=== PATIENT | female | born 1940 | race Caucasian/White ===

== ENCOUNTER 2020-12-21 18:25 | Day surgery (SDCO) | payer MEDICARE, OTHER ==
[~2020-12-21] VITALS: Ht 157.5 cm; Wt 93.0 kg
[~2020-12-21 18:25] MED LIST: ASPIRIN EC81 MG PO; ATIVAN0.5 MG PO; BACLOFEN 10MG T10 MG PO; BECONASE AQ25 GM; BUMETANIDE1 MG PO; BUSPAR5 MG PO; BUSPIRONE HCL10 MG PO; CARAFATE1 G1 PO; CARAFATE1 GM PO; CARDIZEM CD180 MG PO; CATAPRES0.1 MG PO; DULERA 200 MCG8.8 GM INH; ELIQUIS5 MG PO; FLONASE ALLER15.8 ML; LEVAQUIN500 MG PO; NORVASC2.5 MG PO; NORVASC5 MG PO; PROAIR HFA8.5 GM INH; PROTONIX 40MG T40 MG PO; RYTHMOL150 MG PO; SEROQUEL50 MG PO; SYNTHROID88 MCG PO; SYSTANE BALANCE10 ML EYEBOTH; TOPROL XL 50 MG50 MG PO; VIBRAMYCIN100 MG PO; ZYRTEC10 M3 PO
[2020-12-21 19:18] LABS: BASOPHIL 0.3 % (0-2); EOSINOPHIL 0.3 % (0-7); HGB 13.1 g/dl (12.5-16.0); LYMPHOCYTE 24.8 % (15-48); MCH 26.8 pg (25.0-31.0); MCHC 32.8 g/dL (32.0-36.0); MPV 9.5 fL (6.0-9.5); NRBC 0; PLT 277 K/uL (150-400); RBC 4.88 M/uL (4.20-5.40); RDW 15.6 % (11.5-14.0); WBC 12.9 K/uL (4.0-10.5)
[2020-12-21 19:43] LABS: PRO-BNP 1729 pg/mL (<450)
[2020-12-21 19:46] LABS: ALBUMIN 3.5 g/dL (3.4-5.0); BILIRUBIN - TOTAL 0.3 mg/dL (0.2-1.0); BUN/CREAT RATIO (CALC) 22.1 RATIO; CREATININE 0.68 mg/dL (0.51-0.95); FT4 (FREE T4) 1.5 ng/dL (0.76-1.46); GLOBULIN (CALCULATION) 3.2 g/dL; MAGNESIUM 1.9 mg/dL (1.8-2.4); POTASSIUM 3.6 mmol/L (3.5-5.1); TOTAL PROTEIN 6.7 g/dL (6.4-8.2)
[2020-12-21 19:52] LABS: BILIRUBIN NEGATIVE (NEGATIVE); BLOOD NEGATIVE Ery/uL (NEGATIVE); CLARITY CLEAR (CLEAR); COLOR YELLOW (YELLOW); GLUCOSE (U) NORMAL (NORMAL); LEUKOCYTES 2+ Leu/uL (NEGATIVE); NITRITE NEGATIVE (NEGATIVE); PROTEIN NEGATIVE (NEGATIVE); SPECIFIC GRAVITY <=1.005 (1.001-1.030); UROBILINOGEN 0.2 mg/dL (0.2-1.0)
[2020-12-21 20:11] LABS: BACTERIA 2+; RENAL EPITHELIAL CELLS RARE; SQUAMOUS EPITHELIAL CELLS RARE; URINARY RBC RARE
[2020-12-21 20:12] LABS: AMORPHOUS URATES CRYSTALS TRACE
[2020-12-21 20:14] LABS: INR 0.99 (0.9-1.2); PROTHROMBIN TIME 12.4 SECONDS (11.4-13.6)
[2020-12-21] MEDS ORDERED: SYNTHROID75 MCG PO (22:24)
[2020-12-22 06:40] LABS: BASOPHIL 0.7 % (0-2); EOSINOPHIL 0.5 % (0-7); HCT 37.1 % (37.0-47.0); HGB 12.2 g/dl (12.5-16.0); LYMPHOCYTE 29.5 % (15-48); MCH 26.5 pg (25.0-31.0); MCHC 32.9 g/dL (32.0-36.0); MCV 80.7 fL (78.0-100.0); MONOCYTE 12.6 % (0-12); MPV 9.5 fL (6.0-9.5); NEUTROPHIL 56.2 % (41-80); NRBC 0; PLT 256 K/uL (150-400); RDW 15.5 % (11.5-14.0); WBC 9.2 K/uL (4.0-10.5)
[2020-12-22 07:08] LABS: BUN/CREAT RATIO (CALC) 22.2 RATIO; CREATININE 0.63 mg/dL (0.51-0.95); POTASSIUM 3.4 mmol/L (3.5-5.1)
[2020-12-22] MEDS ORDERED: ATIVAN0.5 MG PO (12:04)
--- NOTE | 2020-12-22 14:31 | NUR ---
12/22/20 Ms. Pardo lives with her daughter, son-in-law and 9 y/o grandson. She has 02, portable 02, Bipap with 02 at night, quad cane, rw, 3in1, lift chair, and automatic bed. No discharge planning needs are anticipated.
[2020-12-23 05:05] LABS: BUN/CREAT RATIO (CALC) 29.9 RATIO; CREATININE 0.67 mg/dL (0.51-0.95); POTASSIUM 3.9 mmol/L (3.5-5.1)
[2020-12-23] MEDS ORDERED: LEVAQUIN500 MG PO (10:35)
[2020-12-23] MEDS ORDERED: ELIQUIS5 MG PO (12:22)
--- NOTE | 2020-12-23 15:00 | NUR ---
12/23/20 Discharge needs were again discussed with Char. She believes her needs are being met and HH is not needed,
== END 2020-12-23 14:25 | disposition home or self-care (01) ==
LOC: FER 18:25 → FTCU 21:12
PROVIDERS: Emergency Medicine; Emergency Medicine Emergency Medical Services; Internal Medicine Cardiovascular Disease; Nurse Practitioner; ADMIT Hospitalist
DX: I48.0 Paroxysmal atrial fibrillation (principal); I47.1 Supraventricular tachycardia; N39.0 Urinary tract infection, site not specified; G47.33 Obstructive sleep apnea (adult) (pediatric); E89.0 Postprocedural hypothyroidism; G89.29 Other chronic pain; M54.9 Dorsalgia, unspecified; I11.0 Hypertensive heart disease with heart failure; I50.9 Heart failure, unspecified; I07.1 Rheumatic tricuspid insufficiency; I27.20 Pulmonary hypertension, unspecified; Z66 Do not resuscitate; Z87.891 Personal history of nicotine dependence; Z79.82 Long term (current) use of aspirin; Z79.899 Other long term (current) drug therapy; Z88.0 Allergy status to penicillin; Z88.5 Allergy status to narcotic agent; Z88.8 Allergy status to other drugs, medicaments and biological substances; Z20.822 Contact with and (suspected) exposure to COVID-19
CPT/HCPCS: 36415; 71045; 80048; 80053; 81001; 83735; 83880; 84439; 84443; 84484; 85025; 85610; 85730; 87076; 87088; 87186; 93005; 94640; 94667; G0378; J0696; J1650; J1940; U0002

== ENCOUNTER 2021-04-11 13:10 | Emergency (ER) | payer MEDICARE, OTHER ==
[~2021-04-11 13:10] MED LIST changes: +SYNTHROID75 MCG PO
[2021-04-11 16:36] LABS: BASOPHIL 0.4 % (0-2); EOSINOPHIL 1.8 % (0-7); HCT 37.5 % (37.0-47.0); HGB 11.7 g/dl (12.5-16.0); LYMPHOCYTE 16.1 % (15-48); MCHC 31.2 g/dL (32.0-36.0); MPV 9.6 fL (6.0-9.5); NRBC 0; PLT 300 K/uL (150-400); RBC 4.87 M/uL (4.20-5.40); RDW 14.3 % (11.5-14.0); WBC 7.2 K/uL (4.0-10.5)
[2021-04-11 17:16] LABS: CORONAVIRUS 2019 SARS-COV-2 POSITIVE (NEGATIVE); INFLUENZA A NAA NEGATIVE (NEGATIVE)
[2021-04-11 17:17] LABS: BUN/CREAT RATIO (CALC) 15.7 RATIO; C-REACTIVE PROTEIN 1.5 mg/dL (<=0.90); CREATININE 0.7 mg/dL (0.51-0.95); POTASSIUM 3.5 mmol/L (3.5-5.1)
[2021-04-11 17:29] LABS: BILIRUBIN NEGATIVE (NEGATIVE); BLOOD NEGATIVE Ery/uL (NEGATIVE); CLARITY CLEAR (CLEAR); COLOR YELLOW (YELLOW); GLUCOSE (U) NORMAL (NORMAL); LEUKOCYTES 1+ Leu/uL (NEGATIVE); NITRITE NEGATIVE (NEGATIVE); PROTEIN NEGATIVE (NEGATIVE); UROBILINOGEN 0.2 mg/dL (0.2-1.0); pH 7.5 (5.0-9.0)
[2021-04-11 17:37] LABS: URINARY WBC RARE
[2021-04-11 17:38] LABS: AMORPHOUS URATES CRYSTALS MODERATE; BACTERIA TRACE; RENAL EPITHELIAL CELLS RARE; SQUAMOUS EPITHELIAL CELLS 20-50; URINARY RBC RARE
[2021-04-11] MEDS ORDERED: ZOFRAN4 M1 PO (20:20)
[2021-04-11] MEDS ORDERED: AZITHROMYCIN250 MG PO (20:20)
== END 2021-04-11 20:52 | disposition home or self-care (01) ==
LOC: FER 13:10
PROVIDERS: Nurse Practitioner Family
DX: U07.1 COVID-19 (principal); J12.82 Pneumonia due to coronavirus disease 2019; I48.91 Unspecified atrial fibrillation; I10 Essential (primary) hypertension; J44.9 Chronic obstructive pulmonary disease, unspecified; Z88.5 Allergy status to narcotic agent; Z88.0 Allergy status to penicillin; Z88.8 Allergy status to other drugs, medicaments and biological substances; Z23 Encounter for immunization
CPT/HCPCS: 36415; 71045; 80048; 81001; 82728; 85025; 86140; J2405; J7030; M0243; Q0244; U0002

== ENCOUNTER 2021-05-15 15:31 | Day surgery (SDCO) | payer MEDICARE, OTHER ==
[~2021-05-15] VITALS: Ht 157.5 cm; Wt 90.0 kg
[~2021-05-15 15:31] MED LIST changes: +AZITHROMYCIN250 MG PO; +ZOFRAN4 M1 PO
[2021-05-15 17:06] LABS: BASOPHIL 0.6 % (0-2); EOSINOPHIL 0.6 % (0-7); HCT 36.5 % (37.0-47.0); HGB 11.2 g/dl (12.5-16.0); MCH 23.5 pg (25.0-31.0); MCHC 30.7 g/dL (32.0-36.0); MCV 76.7 fL (78.0-100.0); MONOCYTE 10.2 % (0-12); MPV 9.7 fL (6.0-9.5); NRBC 0; PLT 358 K/uL (150-400); RBC 4.76 M/uL (4.20-5.40); RDW 15.1 % (11.5-14.0); WBC 12.2 K/uL (4.0-10.5)
[2021-05-15 17:10] LABS: INR 1.35 (0.9-1.2); PTT 37.7 SECONDS (24.4-34.7)
[2021-05-15 17:12] LABS: D-DIMER 0.7 ug/mLFEU (0.00-0.41)
[2021-05-15 17:19] LABS: LACTIC ACID 1.3 mmol/L (0.4-1.9)
[2021-05-15 17:23] LABS: PRO-BNP 834 pg/mL (<450)
[2021-05-15 17:26] LABS: ALBUMIN 3.7 g/dL (3.4-5.0); BILIRUBIN - TOTAL 0.3 mg/dL (0.2-1.0); BUN/CREAT RATIO (CALC) 23.4 RATIO; CREATININE 0.64 mg/dL (0.51-0.95); GLOBULIN (CALCULATION) 3.3 g/dL; MAGNESIUM 1.9 mg/dL (1.8-2.4); POTASSIUM 3.1 mmol/L (3.5-5.1)
[2021-05-15] MEDS ORDERED: BUMEX1 MG PO (23:33)
[2021-05-16 06:30] LABS: BASOPHIL 0 % (0-2); EOSINOPHIL 0 % (0-7); HCT 32.9 % (37.0-47.0); HGB 10.2 g/dl (12.5-16.0); LYMPHOCYTE 20.6 % (15-48); MCH 23.1 pg (25.0-31.0); MCV 74.6 fL (78.0-100.0); MPV 9.5 fL (6.0-9.5); NEUTROPHIL 75.6 % (41-80); NRBC 0; PLT 341 K/uL (150-400); RBC 4.41 M/uL (4.20-5.40); RDW 14.9 % (11.5-14.0); WBC 6.6 K/uL (4.0-10.5)
[2021-05-16 07:15] LABS: ALBUMIN 3.3 g/dL (3.4-5.0); BILIRUBIN - TOTAL 0.3 mg/dL (0.2-1.0); BUN/CREAT RATIO (CALC) 38.9 RATIO; CREATININE 0.54 mg/dL (0.51-0.95); GLOBULIN (CALCULATION) 3.2 g/dL; MAGNESIUM 1.9 mg/dL (1.8-2.4); PHOSPHORUS 2.8 mg/dL (2.6-4.7); POTASSIUM 3.5 mmol/L (3.5-5.1); TOTAL PROTEIN 6.5 g/dL (6.4-8.2)
[2021-05-16 08:42] LABS: CKMB 0.6 ng/mL (0.0-3.6); PRO-BNP 1140 pg/mL (<450)
--- NOTE | 2021-05-16 15:44 | NUR ---
05/16/21 A referral was received requesting assistance to help patient receive a new BIPAP. Ms. Olivarez reports to have a [employer] which has re-called. Ms. Pardo is on Kirk's list to receive a new BIPAP. - [facility] was contacted and advised for patient to contact the MD who prescribed the BIPAP for further advisement. This information was relayed to Ms. Pardo. - She was provided with the telephone # to Jace. Ms. Pardo lives with her daughter, son-in-lae, and 10 y/o grandson. She has home 02, portable 02, quad cane, rw, 3in1, lift chair and automatic bed. - Ms. Pardo will be transferred to [facility].
== END 2021-05-16 20:47 | disposition other institution (70) ==
LOC: FER 15:31 → FOFB 19:21 → FMS 19:21
PROVIDERS: Emergency Medicine; Nurse Practitioner; ADMIT Internal Medicine
DX: I11.0 Hypertensive heart disease with heart failure (principal); I50.33 Acute on chronic diastolic (congestive) heart failure; I48.0 Paroxysmal atrial fibrillation; I49.5 Sick sinus syndrome; Z79.01 Long term (current) use of anticoagulants; Z88.5 Allergy status to narcotic agent; Z88.0 Allergy status to penicillin; Z88.8 Allergy status to other drugs, medicaments and biological substances; F41.1 Generalized anxiety disorder; G89.29 Other chronic pain; M54.9 Dorsalgia, unspecified; Z90.49 Acquired absence of other specified parts of digestive tract; Z96.612 Presence of left artificial shoulder joint; Z87.891 Personal history of nicotine dependence; Z79.82 Long term (current) use of aspirin; G47.33 Obstructive sleep apnea (adult) (pediatric); F41.9 Anxiety disorder, unspecified; I27.20 Pulmonary hypertension, unspecified; Z20.822 Contact with and (suspected) exposure to COVID-19
CPT/HCPCS: 36415; 36600; 71045; 80053; 80061; 82553; 82803; 83036; 83605; 83735; 83880; 84100; 84145; 84484; 85025; 85379; 85610; 85730; 87040; 93005; 94010; 94640; 94660; 94664; G0378; J1940; J2930; U0002

== ENCOUNTER 2021-11-16 21:19 | Inpatient (IN) | payer OTHER ==
[~2021-11-16] VITALS: Ht 157.5 cm; Wt 89.6 kg
[~2021-11-16 21:19] MED LIST changes: +BUMEX1 MG PO
[2021-11-16 22:32] LABS: BASOPHIL 0.2 % (0-2); EOSINOPHIL 0 % (0-7); HCT 28.8 % (37.0-47.0); HGB 8.9 g/dl (12.5-16.0); LYMPHOCYTE 10.8 % (15-48); MCH 20.3 pg (25.0-31.0); MCHC 30.9 g/dL (32.0-36.0); MCV 65.6 fL (78.0-100.0); MPV 9.3 fL (6.0-9.5); NEUTROPHIL 76.7 % (41-80); NRBC 0; PLT 312 K/uL (150-400); RBC 4.39 M/uL (4.20-5.40); RDW 17.1 % (11.5-14.0); WBC 11.2 K/uL (4.0-10.5)
[2021-11-16 22:59] LABS: BILIRUBIN NEGATIVE (NEGATIVE); BLOOD TRACE-INTACT Ery/uL (NEGATIVE); CLARITY CLEAR (CLEAR); COLOR YELLOW (YELLOW); GLUCOSE (U) NORMAL (NORMAL); LEUKOCYTES NEGATIVE Leu/uL (NEGATIVE); NITRITE NEGATIVE (NEGATIVE); PROTEIN NEGATIVE (NEGATIVE); UROBILINOGEN 0.2 mg/dL (0.2-1.0)
[2021-11-16 23:04] LABS: LACTIC ACID 0.9 mmol/L (0.4-1.9)
[2021-11-16 23:05] LABS: ALBUMIN 3.4 g/dL (3.4-5.0); BILIRUBIN - TOTAL 0.5 mg/dL (0.2-1.0); BUN/CREAT RATIO (CALC) 30.4 RATIO; CREATININE 0.56 mg/dL (0.51-0.95); GLOBULIN (CALCULATION) 3.6 g/dL; POTASSIUM 2.8 mmol/L (3.5-5.1)
[2021-11-16 23:07] LABS: URINARY RBC RARE; URINARY WBC RARE
[2021-11-16 23:40] LABS: CORONAVIRUS 2019 SARS-COV-2 NEGATIVE (NEGATIVE); INFLUENZA A NAA NEGATIVE (NEGATIVE)
[2021-11-17 04:05] LABS: HCT 29.7 % (37.0-47.0); HGB 8.8 g/dl (12.5-16.0); MCH 19.5 pg (25.0-31.0); MCHC 29.6 g/dL (32.0-36.0); MCV 65.9 fL (78.0-100.0); MPV 9.3 fL (6.0-9.5); RBC 4.51 M/uL (4.20-5.40); RDW 17.2 % (11.5-14.0); WBC 9.7 K/uL (4.0-10.5)
[2021-11-17] MEDS ORDERED: AMIODARONE HCL200 MG PO (04:10)
[2021-11-17 04:27] LABS: BUN/CREAT RATIO (CALC) 32.7 RATIO; CREATININE 0.52 mg/dL (0.51-0.95); POTASSIUM 2.9 mmol/L (3.5-5.1)
[2021-11-17 06:35] LABS: MAGNESIUM 2.5 mg/dL (1.8-2.4); PHOSPHORUS 3.4 mg/dL (2.6-4.7)
[2021-11-18 04:00] LABS: BASOPHIL 0.1 % (0-2); EOSINOPHIL 0 % (0-7); HCT 26.5 % (37.0-47.0); HGB 8.1 g/dl (12.5-16.0); LYMPHOCYTE 7.6 % (15-48); MCH 20.2 pg (25.0-31.0); MCHC 30.6 g/dL (32.0-36.0); MCV 66.1 fL (78.0-100.0); MONOCYTE 8.7 % (0-12); MPV 9.3 fL (6.0-9.5); NEUTROPHIL 82.8 % (41-80); NRBC 0; PLT 293 K/uL (150-400); RBC 4.01 M/uL (4.20-5.40); RDW 17.3 % (11.5-14.0); RETICULOCYTE COUNT 2.2 % (1.0-2.0); WBC 11.4 K/uL (4.0-10.5)
[2021-11-18 04:05] LABS: IRON % SATURATION 3.8 %SAT (20-50)
[2021-11-18 04:34] LABS: ALBUMIN 3.1 g/dL (3.4-5.0); BILIRUBIN - TOTAL 0.4 mg/dL (0.2-1.0); BUN/CREAT RATIO (CALC) 31.8 RATIO; CREATININE 0.66 mg/dL (0.51-0.95); PHOSPHORUS 3.6 mg/dL (2.6-4.7); POTASSIUM 3.4 mmol/L (3.5-5.1); TOTAL PROTEIN 6.1 g/dL (6.4-8.2)
[2021-11-19 07:01] LABS: BASOPHIL 0.1 % (0-2); EOSINOPHIL 0 % (0-7); HCT 28.8 % (37.0-47.0); HGB 8.5 g/dl (12.5-16.0); LYMPHOCYTE 5.9 % (15-48); MCHC 29.5 g/dL (32.0-36.0); MCV 67.8 fL (78.0-100.0); MONOCYTE 3.9 % (0-12); MPV 9.4 fL (6.0-9.5); NEUTROPHIL 88.6 % (41-80); NRBC 0; PLT 334 K/uL (150-400); RBC 4.25 M/uL (4.20-5.40); RDW 18.2 % (11.5-14.0)
[2021-11-19 07:23] LABS: BUN/CREAT RATIO (CALC) 29.4 RATIO; CREATININE 0.68 mg/dL (0.51-0.95); PHOSPHORUS 3.5 mg/dL (2.6-4.7); POTASSIUM 4.4 mmol/L (3.5-5.1)
[2021-11-20 06:23] LABS: BASOPHIL 0.2 % (0-2); EOSINOPHIL 0.2 % (0-7); HCT 29.3 % (37.0-47.0); HGB 8.4 g/dl (12.5-16.0); LYMPHOCYTE 17.4 % (15-48); MCH 19.8 pg (25.0-31.0); MCHC 28.7 g/dL (32.0-36.0); MCV 69.1 fL (78.0-100.0); MONOCYTE 11.7 % (0-12); MPV 9.3 fL (6.0-9.5); NEUTROPHIL 67.4 % (41-80); NRBC 0; PLT 376 K/uL (150-400); RBC 4.24 M/uL (4.20-5.40); RDW 18.5 % (11.5-14.0); WBC 16.5 K/uL (4.0-10.5)
[2021-11-20 07:04] LABS: BUN/CREAT RATIO (CALC) 25.3 RATIO; CREATININE 0.79 mg/dL (0.51-0.95); POTASSIUM 3.6 mmol/L (3.5-5.1)
[2021-11-21 06:12] LABS: BASOPHIL 0.7 % (0-2); EOSINOPHIL 1.1 % (0-7); HCT 29.5 % (37.0-47.0); HGB 8.5 g/dl (12.5-16.0); LYMPHOCYTE 18.6 % (15-48); MCH 20.1 pg (25.0-31.0); MCHC 28.8 g/dL (32.0-36.0); MCV 69.9 fL (78.0-100.0); MONOCYTE 10.8 % (0-12); MPV 9.4 fL (6.0-9.5); NEUTROPHIL 63.2 % (41-80); NRBC 0.5; PLT 384 K/uL (150-400); RBC 4.22 M/uL (4.20-5.40); RDW 18.6 % (11.5-14.0); WBC 16.5 K/uL (4.0-10.5)
[2021-11-21 06:40] LABS: BUN/CREAT RATIO (CALC) 28.6 RATIO; CREATININE 0.7 mg/dL (0.51-0.95); MAGNESIUM 1.9 mg/dL (1.8-2.4); POTASSIUM 4.1 mmol/L (3.5-5.1)
[2021-11-21] MEDS ORDERED: ANTIVERT25 MG PO (13:01)
[2021-11-21] MEDS ORDERED: BUMEX1 MG PO (13:16)
== END 2021-11-21 14:17 | disposition home health service (06) | DRG 291 ==
LOC: FER 21:19 → FMS 11-17 01:33
PROVIDERS: Emergency Medicine; Nurse Practitioner; ADMIT Internal Medicine
DX: I11.0 Hypertensive heart disease with heart failure (principal); J96.21 Acute and chronic respiratory failure with hypoxia; I50.33 Acute on chronic diastolic (congestive) heart failure; J44.1 Chronic obstructive pulmonary disease with (acute) exacerbation; E87.1 Hypo-osmolality and hyponatremia; Z20.822 Contact with and (suspected) exposure to COVID-19; Z28.310 Unvaccinated for COVID-19; E87.6 Hypokalemia; I27.20 Pulmonary hypertension, unspecified; I48.0 Paroxysmal atrial fibrillation; E89.0 Postprocedural hypothyroidism; I34.0 Nonrheumatic mitral (valve) insufficiency; F41.1 Generalized anxiety disorder; D50.9 Iron deficiency anemia, unspecified; G47.33 Obstructive sleep apnea (adult) (pediatric); Z96.612 Presence of left artificial shoulder joint; Z90.49 Acquired absence of other specified parts of digestive tract; Z87.891 Personal history of nicotine dependence; Z99.81 Dependence on supplemental oxygen; Z88.0 Allergy status to penicillin; Z88.5 Allergy status to narcotic agent; Z87.440 Personal history of urinary (tract) infections; Z90.711 Acquired absence of uterus with remaining cervical stump; Z98.890 Other specified postprocedural states
CPT/HCPCS: 36415; 36600; 71045; 71275; 80048; 80053; 81001; 82607; 82746; 82803; 83540; 83550; 83605; 83735; 83880; 84100; 84145; 84484; 85025; 87040; 87070; 87205; 87449; 93005; 93880; 94640; 94660; 94668; 94760; 94762; 97162; 97166; 97530; 97530-GP; 97535; J0456; J0692; J1885; J2916; J2930; J3420; J3475; J3490; J7050; Q9967; U0002